=== PATIENT | female | born 1970 | race Caucasian/White ===

== ENCOUNTER 2016-12-25 17:57 | Emergency (ER) | payer SELFPAY ==
[2016-12-25 19:49] LABS: BASOPHILS 0.2 % (0-2); EOSINOPHILS 0.8 % (0-7); HEMOGLOBIN 13.9 g/dL (12-16); IMMATURE GRANULOCYTES 0.2 % (0-5); LYMPHOCYTES 17.8 % (15-50); MCHC 33.1 g/dL (31.0-37.0); MCV 84.5 fL (80.0-100.0); MEAN PLATELET VOLUME 10.2 fL (7.4-10.4); MONOCYTES 7.3 % (2-11); NEUTROPHILS 73.7 % (40-80); PLATELET COUNT 238 10x3/uL (130-400); RBC 4.97 10x6/uL (4.00-5.40); RDW 13.6 % (11.5-14.5); WBC 12.3 10x3/uL (4.8-10.8)
[2016-12-25 21:11] LABS: ALBUMIN 3.5 g/dL (3.4-5.0); ALKALINE PHOSPHATASE 80 U/L (46-116); ALT (SGPT) 101 U/L (10-68); CALC OSMOLALITY 256 mosm/kg (275-300); CALCIUM 7.8 mg/dL (8.5-10.1); CHLORIDE - SERUM 96 mmol/L (98-107); CREATININE - SERUM 0.7 mg/dL (0.6-1.3); GLUCOSE 90 mg/dL (74-106); POTASSIUM - SERUM 3.1 mmol/L (3.5-5.1); PROTEIN - SERUM 6.1 g/dL (6.4-8.2); SODIUM 129 mmol/L (136-145); UREA NITROGEN 7 mg/dL (7-18); eGFR NON AFRICAN AMERICAN > 90 mL/min (90-120)
== END 2016-12-25 21:29 | disposition home or self-care (01) ==
LOC: D.ER 17:57
PROVIDERS: Nurse Practitioner Family
DX: S16.1XXA Strain of muscle, fascia and tendon at neck level, initial encounter (principal); V43.52XA Car driver injured in collision with other type car in traffic accident, initial encounter; Y93.89 Activity, other specified; Y92.410 Unspecified street and highway as the place of occurrence of the external cause; S69.91XA Unspecified injury of right wrist, hand and finger(s), initial encounter; F17.200 Nicotine dependence, unspecified, uncomplicated